=== PATIENT | female | born 1945 | race Caucasian/White ===

== ENCOUNTER 2017-03-22 06:33 | Outpatient (CLI) | payer MEDICARE ==
--- NOTE | 2017-03-22 10:00 | MRI ---
MRI LUMBAR SPINE WITHOUT CONTRAST: Date: 03-22-17 Comparison: 08-27-16, 10-09-14 History: Back pain with bilateral lower extremity radiculopathy and bilateral leg pain. Technique: Multiplanar, multisequence MR imaging of the lumbar spine is obtained without contrast. FINDINGS: Assuming five lumbar type vertebral bodies, conus medullaris terminates at the L1 level. Anterolisthesis of L4 on L5 is noted measuring 6-7 mm, slightly more prominent than on the prior exam . The sagittal STIR imaging demonstrates no focal area of osseous marrow edema. There is evidence of fr actures status post kyphoplasty at T10, T12, and L1. T11-12: There is disc space narrowing and disc desiccation. There is minimal retropulsion secondary t o fracture at superior endplate of T12, unchanged since 2014. There is no significant resultant centr al canal stenosis. There is mild bilateral facet hypertrophy but no significant neural foraminal sten osis on either side. T12-L1: There is bilateral facet hypertrophy. There is disc desiccation and mild disc space narrowing . There is no significant central canal or neural foraminal stenosis. L1-2: Mild bilateral facet hypertrophy. There is disc desiccation. No significant central canal or ne ural foraminal stenosis. L2-3: Mild bilateral facet hypertrophy. There is disc desiccation. There is no significant central ca nal or neural foraminal stenosis. L3-4: There is disc space narrowing, disc desiccation and mild disc bulge. There is mild bilateral fa cet hypertrophy and hypertrophy of ligamentum flavum. There is no significant central canal stenosis. There is mild bilateral neural foraminal stenosis, left greater than right. L4-5: There is bilateral facet hypertrophy and hypertrophy of ligamentum flavum with fluid within mikael ateral facet joints, progressed since the prior exam. There is mild central canal stenosis, similar w hen compared to prior imaging. There is mild bilateral neural foraminal stenosis, left greater than r ight, similar when compared to the prior exam. L5-S1: There is disc space narrowing and disc desiccation with mild disc bulge. Mild bilateral facet hypertrophy. No significant central canal or neural foraminal stenosis noted. Trace pleural fluid noted on the left. Imaged retroperitoneal structures demonstrate no acute finding s. IMPRESSION: 1. Multiple old fractures status post kyphoplasty. Multilevel degenerative change noted within the papi mbar spine with mild areas of central canal and neural foraminal stenosis as detailed above, not sign ificantly changed. POS: [facility]
--- NOTE | 2017-03-22 10:13 | MRI ---
MRI OF THE THORACIC SPINE WITHOUT CONTRAST: Date: 03-22-17 Comparison: 01-24-16 History: Pain and radiculopathy. Technique: Multiplanar, multisequence MR imaging of the thoracic spine provided without contrast. FINDINGS: There are kyphoplasty changes noted at T10, T12, and L1, stable. The sagittal STIR imaging demonstrates no focal area of osseous marrow edema to suggest the presence of an acute thoracic spine fracture. Superior endplate irregularity and anterior wedging noted at numerous levels within the upper and mid thoracic spine, stable, evidence of remote fractures. This includes T5, T6, T7 and T8 vertebral bodi es. There is no significant anterolisthesis of retrolisthesis noted within the thoracic spine. There is m inimal retropulsion at the superior endplate of the T12 vertebral body without associated significant central canal stenosis, stable. There is no significant central canal or neural foraminal stenosis noted within the thoracic spine. T here is no abnormal signal intensity within the thoracic cord. There is a tiny pleural effusion on th e left. IMPRESSION: No acute fracture is noted. Evidence of multiple prior kyphoplasty. Incidental findings as detailed a ernst. POS: [facility]
== END 2017-03-22 06:34 | disposition home or self-care (01) ==
LOC: MRI 06:33
PROVIDERS: ATTEND Nurse Practitioner Family
DX: M54.5 Low back pain (principal); M54.6 Pain in thoracic spine; M47.896 Other spondylosis, lumbar region; M48.061 Spinal stenosis, lumbar region without neurogenic claudication; Z98.890 Other specified postprocedural states
CPT/HCPCS: 72146; 72148

== ENCOUNTER 2017-04-22 10:05 | Outpatient (CLI) | payer MEDICARE ==
[2017-04-22] MEDS ORDERED: Iopamidol 370 76% 100 ML VIAL ONE (13:27)
== END 2017-04-22 10:06 | disposition home or self-care (01) ==
LOC: BICCT 10:05
PROVIDERS: ATTEND Internal Medicine Gastroenterology
DX: R10.9 Unspecified abdominal pain (principal); R63.4 Abnormal weight loss; K21.9 Gastro-esophageal reflux disease without esophagitis; R14.0 Abdominal distension (gaseous); N28.1 Cyst of kidney, acquired; Z98.890 Other specified postprocedural states
CPT/HCPCS: 36415; 74177; 82565

== ENCOUNTER 2017-05-11 07:09 | Outpatient (CLI) | payer MEDICARE ==
--- NOTE | 2017-05-11 09:07 | ULT ---
RIGHT UPPER QUADRANT ULTRASOUND: INDICATION: Abdominal pain. COMPARISON: CT of the chest, abdomen, and pelvis dated 05/22/14. FINDINGS: The gallbladder is surgically absent. No focal hepatic lesion is evident. There is some limited visualization of a portion of the bladder due to overlying bowel gas. The pancreas is obscured by overlying bowel gas. The common bile duct measures 6.2 mm. The right kidney measures 9.5 x 3.5 x 3.6 cm. No focal renal lesion or hydronephrosis is evident. IMPRESSION: 1. No acute sonographic abnormality within the abdomen. 2. Some limitation of the exam due to overlying bowel gas. 3. Cholecystectomy. POS: [facility]
== END 2017-05-11 07:10 | disposition home or self-care (01) ==
LOC: ULT 07:09
PROVIDERS: ATTEND Internal Medicine Gastroenterology
DX: R14.0 Abdominal distension (gaseous) (principal); R10.9 Unspecified abdominal pain; Z90.49 Acquired absence of other specified parts of digestive tract
CPT/HCPCS: 76705

== ENCOUNTER 2017-08-25 11:25 | Emergency (ER) | payer MEDICARE ==
[2017-08-25] MEDS ORDERED: traMADol HCl 50 MG TAB ONE (12:26)
--- NOTE | 2017-08-25 12:26 | RAD ---
RIGHT FOREARM 2 VIEWS: HISTORY: Patient fell with right arm pain. FINDINGS: The bones are demineralized. The wrist region is not well evaluated on this examination. There is w hat appears to be an old injury to the ulnar styloid and some slight irregularity to the distal radiu s which is felt to be related to an old posttraumatic change. The soft tissue swelling is seen more proximally in the proximal forearm. There is no fracture in this region. IMPRESSION: Old-appearing distal radial and ulnar styloid fractures. POS: [facility]
[2017-08-25] MEDS ORDERED: Ibuprofen 200 MG TAB ONE (12:27)
--- NOTE | 2017-08-25 12:29 | RAD ---
TWO VIEWS OF THE RIGHT HUMERUS: DATE: 08/25/17. COMPARISON: None. HISTORY: Fall, trauma, pain. FINDINGS: There is a nondisplaced obliquely oriented fracture involving the proximal right humerus at the level of the greater tuberosity. In addition, there appears to be an oblique and impacted component of fr acture involving the base of the right humeral head/right humeral neck. No evidence for dislocation. IMPRESSION: Comminuted and impacted fracture involving the right humeral head/neck as above. POS: [facility]
== END 2017-08-25 12:44 | disposition home or self-care (01) ==
LOC: ERS 11:25
DX: S42.214A Unspecified nondisplaced fracture of surgical neck of right humerus, initial encounter for closed fracture (principal); I10 Essential (primary) hypertension; G89.29 Other chronic pain; W19.XXXA Unspecified fall, initial encounter

== ENCOUNTER 2017-10-28 08:42 | Outpatient (CLI) | payer MEDICARE | END 2017-10-28 08:43 | disposition home or self-care (01) | LOC: BICMAMMO 08:42 | PROVIDERS: ATTEND Internal Medicine Hematology & Oncology | DX: M81.0 Age-related osteoporosis without current pathological fracture (principal); C50.919 Malignant neoplasm of unspecified site of unspecified female breast | CPT/HCPCS: 77080 ==

== ENCOUNTER 2018-07-15 11:27 | Inpatient (IN) | payer MEDICARE ==
[2018-07-15] MEDS ORDERED: Morphine 4 MG/ML VIAL ONE ×2 (11:54→13:57)
[2018-07-15 12:06] LABS: #Monocytes 0.4 thou/uL (0.11-0.59); #Neutrophils 3.8 thou/uL (1.40-6.50); %Basophils 0.9 % (0.0-1.0); %Eosinophils 0.5 % (0.0-10.0); %Lymphocytes 18.6 % (21.0-51.0); %Monocytes 7.9 % (0.0-10.0); %Neutrophils 72.2 % (42.0-75.0); Mean Corpuscular HGB CONC 32.4 g/dL (32.0-36.0); Mean Corpuscular Hemoglobin 32.5 pg (27.0-31.0); Mean Platelet Volume 7.3 fL (7.4-10.4); Platelet Count 173 thou/uL (130-400); RBC Distribution Width 12.1 % (11.5-14.5); Red Blood Cell (RBC) Count 3.07 mill/uL (4.20-5.40); White Blood Cell (WBC) Count 5.3 thou/uL (4.8-10.8)
[2018-07-15 12:29] LABS: ALT (SGPT) 27 U/L (8-55); AST (SGOT) 47 U/L (5-34); Albumin 3.5 g/dL (3.4-4.8); Alkaline Phosphatase 56 U/L (40-150); Anion Gap 11 mmol/L (10-20); BUN (Urea Nitrogen) 19 mg/dL (9.8-20.1); Bilirubin, Total 0.4 mg/dL (0.2-1.2); Calc. Creatinine Clearance 0 mL/min (70-130); Calcium 8.4 mg/dL (7.8-10.44); Carbon Dioxide 24 mmol/L (23-31); Chloride 108 mmol/L (98-107); Estimated GFR-MDRD 60; Globulin 2.5 g/dL (2.4-3.5); Glucose 93 mg/dL (83-110); Lipase 5 U/L (8-78); Potassium 4.4 mmol/L (3.5-5.1); Sodium 139 mmol/L (136-145)
--- NOTE | 2018-07-15 13:04 | CT ---
CT abdomen with contrast CT pelvis with contrast: DATE: 07/15/2018 HISTORY: 73-year-old female with left upper quadrant and left lower quadrant abdominal pain after colonoscopy. Concern for bowel perforation. At 12:57 PM, Dr. Sevilla notified Dr. Martinez of the perisplenic hematoma. COMPARISON: 04/22/2017 TECHNIQUE: IV injection of iodinated contrast media:100 mm [id number] Oral contrast media:Not administered FINDINGS: There is a normal finding of an approximately 10.5 x 8.5 x 7.5 cm mass surrounding the spleen, with h eterogeneously low density, consistent with a perisplenic hematoma. However, a laceration within the spleen is not visualized. The spleen is slightly small in size, and has homogeneous, normal perfu juliana. There is no pneumoperitoneum; no evidence of perforated viscus. There is a minimal finding of a moderate amount of free fluid within the dependent portion of the pel aleida cavity, more on the right side with density of 24 Hounsfield units, probably hemoperitoneum. Small amount of fluid along the left paracolic gutter, probably small amount of blood. No hydronephro sis. No focal hepatic lesion. Diffuse dilation of the entire biliary tree secondary to status post cholecystectomy. This biliary ductal dilation appears slightly worse than on the previous CT. Vertebr oplasty cement in lower thoracic spine and upper lumbar spine. No abdominal aortic aneurysm or rupture. Distended urinary bladder with normal, thin ulloa. Inferior positioning. Absent uterus. No e vidence of colonic diverticulitis. Difficult to evaluate splenic flexure of colon because of surrounding edema and fluid. Suture line around narrowed stomach. No small bowel dilation. Diffuse mi ld dilation of pancreatic duct. No adrenal mass. New tiny left pleural effusion. No consolidation at lung bases.. IMPRESSION: 1. Moderate size left perisplenic hematoma. 2. No evidence of pneumoperitoneum. 3. Hemoperitoneum in the pelvic dependent cavity.
[2018-07-15 14:12] LABS: INR-International Normal Ratio 1.1; PTT 25.9 SEC (22.9-36.1); Prothrombin Time 14.1 SEC (12.0-14.7)
[2018-07-15] MEDS ORDERED: Dextrose 5% in Water 1,000 ML IV PRN (14:31)
[2018-07-15] MEDS ORDERED: Morphine 4 MG/ML VIAL SLOW IVP PRN (14:31)
[2018-07-15] MEDS ORDERED: Promethazine HCl 25 MG/ML VIAL IM PRN (14:31)
[2018-07-15] MEDS ORDERED: hydrALAZINE 20 MG/ML VIAL SLOW IVP PRN (14:31)
[2018-07-15] MEDS ORDERED: Dextrose 50% Abboject 50 ML SYRINGE SLOW IVP PRN (14:31)
[2018-07-15] MEDS ORDERED: Ondansetron PF 4 MG/2 ML Vial IVP PRN (14:31)
--- NOTE | 2018-07-15 14:49 | HP ---
GENERAL SURGEON: Dr. Jimenez. CONSULTING PHYSICIAN: None. HISTORY OF PRESENT ILLNESS: The patient is a 73-year-old female, who had a colonoscopy today, where the physician reported he had difficulty at the splenic flexure transitioning from the descending colon to the transverse colon. Subsequently, the patient woke up and complained of severe left flank and abdominal tenderness and pain. She came to the emergency department for evaluation after the colonoscopy. She received a CT scan of the abdomen and pelvis, which demonstrated a perisplenic hematoma with hemoperitoneum without any active extravasation. She denies nausea, vomiting, and diarrhea as well as lightheadedness and syncope at this time. PAST MEDICAL HISTORY: Hypertension, hyperlipidemia, chronic back pain, stomach cancer, and dementia. PAST SURGICAL HISTORY: Stomach resection due to stomach cancer, multiple C-sections, total hysterectomy, and bladder pinning. SOCIAL HISTORY: The patient denies tobacco, alcohol, or drug abuse. 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 MEDICATIONS: 1. Tramadol. 2. Lisinopril. 3. An additional medication for dementia, which the patient could not remember the name or the dosage. ALLERGIES: HYDROCODONE. PHYSICAL EXAMINATION: VITAL SIGNS: Temperature 97.6, respirations 16, oxygen saturation 100% on room air, pulse 62, and blood pressure 154/81. GENERAL: Frail-appearing elderly female, lying in bed with no signs of acute distress. NEURO: GCS is 15. Gross motor and sensation intact in all 4 extremities. Pupils 3 to 2, equal, round, reactive bilaterally. Alert and oriented x3. PULMONARY: Equal chest rise and fall. Clear breath sounds bilaterally. No signs of pulmonary distress. CARDIAC: Bradycardic, but regular rhythm. No murmurs, gallops, or rubs. GASTROINTESTINAL: Abdomen is soft. Mildly tender on the left upper and lower quadrant as well as the left flank. No external signs of trauma noted. Positive bowel sounds. EXTREMITIES: Gross motor and sensation intact in all 4 extremities. 2+ pulses in all extremities. No significant swelling noted. LABORATORY FINDINGS: White count 5.3, hemoglobin 10.0, hematocrit 38.0, and platelets 173. INR 1.0, sodium 139, potassium 4.4, chloride 108, carbon dioxide 24, BUN 19, creatinine 0.91, and glucose 93. Lactic acid 0.8. AST 47, ALT 27, total bilirubin 0.4, and lipase 5. DIAGNOSTIC FINDINGS: CT of the abdomen and pelvis with contrast demonstrates moderate size left perisplenic hematoma. No evidence of pneumomediastinum. Hemoperitoneum in the pelvic dependent cavity. ASSESSMENT: 1. Status post colonoscopy with abdominal pain. 2. Perisplenic hematoma. 3. Hemoperitoneum. 4. History of hypertension, hyperlipidemia, chronic back pain, stomach cancer, and dementia. PLAN: The patient will be admitted to the CCU under the care of Dr. Jimenez. Dr. Garcia has agreed to perform any critical care as indicated. She will receive vital signs q.1 hour. We will closely monitor urine output and place a Carvajal. CBCs q.6 hours, next CBC at 1800 and then at midnight. EKG to be completed in the emergency department. The patient to be n.p.o. overnight with normal saline at 100 an hour. We will reassess electrolytes during the morning labs. We will hold chemo-DVT prophylaxis at this time, but the patient is to have SCDs as well as Pepcid for stress ulcer prophylaxis, pain control with Ofirmev and IV morphine. The patient has received morphine in the emergency department with no signs of reaction, although she does have an allergy to hydrocodone. The patient to get up out of bed with assistance, she is able to sit in the bed. I have ordered walking program for her. The patient was examined by Dr. Jimenez and then myself. Job ID: [id number]
[2018-07-15 15:33] LABS: Bilirubin Negative (Negative); Blood, Urine Negative (Negative); Clarity CLOUDY (Clear); Glucose, Urine (Dipstick) Negative (Negative); Leukocyte Trace (Negative); Nitrite Negative (Negative); Protein, Urine (Dipstick) Negative (Neg-Trace); Specific Gravity, Urine 1.027 (1.002-1.036)
[2018-07-15] MEDS ORDERED: Morphine 2 MG/ML SYRINGE SLOW IVP PRN (15:34)
[2018-07-15 15:36] LABS: Bacteria/HPF None Seen HPF (None Seen); Hyaline Casts/LPF 0-3 HYALINE CAST LPF (0-3 Hyaline); Squamous Epithelial None Seen HPF (0-3); WBC/HPF 0-3 HPF (0-3)
[2018-07-15] MEDS ORDERED: ISOVUE-370 76%-LOCM 1 ML ONE (16:42)
[2018-07-15 16:56] VITALS: BMI 19.2
[2018-07-15] MEDS: Sodium Chloride 0.9% 1,000 ML IV SCH (17:30)
[2018-07-15] MEDS: Acetaminophen 1,000 MG in Premix Bag 1 BAG IVPB SCH ×2 (17:30→20:34)
[2018-07-15 17:45] LABS: #Lymphocytes 1.2 thou/uL (1.20-3.40); #Neutrophils 8.5 thou/uL (1.40-6.50); %Basophils 0.2 % (0.0-1.0); %Eosinophils 0.2 % (0.0-10.0); %Monocytes 9.4 % (0.0-10.0); %Neutrophils 79.2 % (42.0-75.0); Hemoglobin 9.4 g/dL (12.0-16.0); Mean Corpuscular HGB CONC 31.9 g/dL (32.0-36.0); Mean Corpuscular Hemoglobin 31.9 pg (27.0-31.0); Mean Platelet Volume 7.1 fL (7.4-10.4); Platelet Count 166 thou/uL (130-400); Red Blood Cell (RBC) Count 2.94 mill/uL (4.20-5.40); White Blood Cell (WBC) Count 10.7 thou/uL (4.8-10.8)
--- NOTE | 2018-07-15 18:15 | CON ---
DATE OF CONSULTATION: HISTORY OF PRESENT ILLNESS: Ms. Thien Finch is a pleasant 73-year-old female, who was admitted to the ICU when she developed left upper abdominal pain for a colonoscopy. CT of abdomen was performed on emergency basis, which showed a large splenic hematoma, but there was no perforation seen. Apparently, there was some difficulty maneuvering the colonoscope by the splenic flexure. The patient in the ICU denies any difficulty breathing. Denies any chest pain. Vague left lower quadrant pain. Otherwise, appears to be relatively stable. PAST MEDICAL HISTORY: Hypertension, hyperlipidemia, chronic pain, apparently evidence of dementia. She sees her primary care physician, Dr. Haley. She has a gastric malignancy, status post chemo and radiation. Chronic renal failure. PREVIOUS SURGERIES: , hysterectomy, wrist surgery, vertebroplasty. HOME MEDICATIONS: Includes: 1. Tramadol. 2. Restoril. 3. Lisinopril 40. 4. Aricept 10. 5. B12. ALLERGIES: HYDROCODONE. SOCIAL HISTORY: Tobacco, none. Alcohol, none. SOCIAL AND FAMILY HISTORY: Unremarkable. REVIEW OF SYSTEMS: Ten-point negative. PHYSICAL EXAMINATION: GENERAL: She is awake, alert, and responsive in the ICU, in no distress. VITAL SIGNS: Pulse is 54, blood pressure 150/80, sats 99% on room air, and respirations 15. CHEST: Reveals no wheezing. CARDIAC: Normal S1 and S2. No gallops. ABDOMEN: Soft without any masses. LABORATORY DATA: No chest x-ray was done. Hemoglobin and hematocrit of 10 and 30, platelet count normal, white count normal. Lytes are normal. IMPRESSION: 1. Status post difficult colonoscopy with abdominal pain. CT showing splenic hematoma. 2. History of gastric cancer, post chemo and radiation. 3. Chronic arthritis. 4. Hypertension. Pulmonary/Critical Care will follow while in the ICU. At this time, she appears stable. Surgery is admitted. Serial exam will be performed. Consultation note, 70 minutes, 50% direct patient care. Job ID: [id number]
[2018-07-15] MEDS: traMADol HCl 50 MG TAB PO SCH (20:38)
[2018-07-15] MEDS: Donepezil HCl 10 MG TAB PO SCH (20:40)
[2018-07-15] MEDS: Hyoscyamine Sulfate ER 0.375 mg Tablet PO SCH (20:41)
[2018-07-15] MEDS ORDERED: Famotidine/PF 20 mg/2ml Vial SLOW IVP SCH (21:00)
[2018-07-15] MEDS ORDERED: TEMAZEPAM 7.5 MG PO SCH (21:00)
[2018-07-15] MEDS: diphenhydrAMINE 25 MG CAP PO PRN (21:34)
--- NOTE | 2018-07-16 00:57 | PRG ---
DATE OF SERVICE: 07/15/2018 HISTORY OF PRESENT ILLNESS: Mrs. Finch is a 73-year-old female who underwent an outpatient colonoscopy earlier this morning. The colon exam was rather difficult as she has severe looping in the sigmoid colon. Cecal intubation was achieved. She did have a transverse colon polyp that was removed. She did well until in recovery area where she was reported having significant left-sided abdominal pain. I examined her and she had a flat abdomen without tympany or distention, with active bowel sounds with palpable tenderness. She was observed for an hour and did not have any significant resolution for abdominal pain despite 50 mcg of fentanyl. Because of the possible complications, she was transferred to the emergency room by ambulance. The CT obtained showed a splenic hematoma with some degree of hemoperitoneum, but without any active extravasation. Laceration was not visible on CT. Currently, she reports having much less pain and appears to be much more comfortable and talkative. The vitals are stable. PAST MEDICAL HISTORY: 1. Status post total gastrectomy, followed by chemoradiation in 2010 for gastric cancer. 2. Status post cholecystectomy. 3. Hypertension. 4. Hyperlipidemia. 5. Status post . 6. Status post hysterectomy. MEDICATIONS: At home include; 1. Aspirin 81 mg daily. 2. Vitamin D. 3. Vitamin B12. 4. Lisinopril 40 mg daily. 5. Memantine 10 mg daily. 6. Tramadol p.r.n. pain. ALLERGIES: HYDROCODONE. SOCIAL HISTORY: The patient is . Lives with her . No tobacco or alcohol usage. FAMILY HISTORY: Colon cancer in brother. Otherwise negative for any known GI problem, liver disease, or GI malignancy. REVIEW OF SYSTEMS: Dysphagia with weight loss, status post esophageal dilation yesterday. Other 10-point review of systems did not show any other pertinent positives or negatives. PHYSICAL EXAMINATION: VITAL SIGNS: Temperature is 98.2, blood pressure 157/82, pulse of 67. GENERAL: She is alert, thin, elderly woman, in no distress. HEENT: Shows anicteric sclerae. Oropharynx clear. NECK: Supple. CV: Shows normal S1, S2. Regular rate and rhythm. CHEST: Shows a breath sounds. ABDOMEN: Soft and flat. No distention. No tympany. She has active bowel sounds. She is minimal to moderate tenderness in the left lower flank below the ribcage. No guarding or rebound. EXTREMITIES: Shows no edema. LABORATORY DATA: WBCs 10.7, hemoglobin 10.0 to 9.4 in 7 hours, platelet count 156. Coagulation normal. Electrolytes are normal. Creatinine is 0.91. LFTs are normal. ASSESSMENT: Splenic hematoma with hemoperitoneum, but without any clear laceration by CT. This happened with her outpatient colonoscopy this morning. Current abdominal exam shows a very benign exam and she appears to be in much more comfortable. RECOMMENDATIONS: 1. No further GI recommendations. The patient appears to be doing much better. 2. Conservative therapy, follow up blood count and exam. 3. Dr. Lira is on-call for GI Services weekend, please call if needed. Job ID: [id number] MTDD
[2018-07-16] MEDS: Acetaminophen 1,000 MG in Premix Bag 1 BAG IVPB SCH ×3 (02:22→15:01)
[2018-07-16] MEDS: Sodium Chloride 0.9% 1,000 ML IV SCH ×2 (02:27→11:42)
[2018-07-16] MEDS: traMADol HCl 50 MG TAB PO SCH ×6 (02:29→21:29)
--- NOTE | 2018-07-16 02:43 | HP ---
The patient was seen in conjunction with Natalia HANSON, and the plan of care was discussed with her. HISTORY OF PRESENT ILLNESS: In short, Ms. Finch is a 73-year-old woman, who was going for routine colonoscopy today and woke up with severe left-sided abdominal pain. There had been difficulty in traversing the splenic flexure and there was concern for perforation, so the patient was sent over to the ER, where CT was done. This did not show any evidence of perforation, but did show a fairly large perisplenic hematoma as well as some blood in the pelvis. However, there was no active extravasation. The patient was hemodynamically stable. She states that her pain is better since earlier in her hospital course, and denies chest pain or shortness of breath. PAST MEDICAL HISTORY: Stomach cancer, status post total gastrectomy, chronic back pain, hypertension, and dementia. PAST SURGICAL HISTORY: Total gastrectomy, kyphoplasty, , hysterectomy, and bladder lift. SOCIAL HISTORY: The patient does not smoke, drink, or use illicit drugs. Lives at home with her family and is independent. MEDICATIONS: Outpatient medications were not available at the time of her admission, but have since been obtained. These include: 1. Aspirin. 2. Vitamin D3. 3. Cyanocobalamin. 4. Donepezil. 5. Hyoscyamine sulfate extended release. 6. Lisinopril. 7. . 8. Temazepam. 9. Tramadol. ALLERGIES: THE PATIENT HAS AN ADVERSE DRUG REACTION TO HYDROCODONE, BUT TOLERATES OTHER NARCOTIC MEDICATIONS. PHYSICAL EXAMINATION: Complete physical examination was performed personally. VITAL SIGNS: Showed some moderate hypertension, but were otherwise within normal limits. GENERAL: She was not tachycardic or hypoxic. She is frail, but in no acute distress and does not appear pale or diaphoretic. HEENT: Unremarkable. NECK: Supple without lymphadenopathy. HEART: Regular in its rate and rhythm without murmurs, rubs, or gallops. LUNGS: Clear to auscultation. She had tenderness on the left side of her abdomen, but no rigidity, rebound, or guarding. No palpable masses or hernias. EXTREMITIES: Warm and well perfused without edema. NEUROLOGIC: No focal deficits, although she had difficulty getting some of the details of her care. For example, she could not tell me exactly why she was having the colonoscopy or whether anything has been found abnormal in the past. LABORATORY DATA: Initial hemoglobin was 10 and is 9.4 on 6-hour recheck. Coags are normal, and electrolytes are unremarkable. DIAGNOSTIC DATA: CT images are reviewed, and I agree with the written report. ASSESSMENT: Perisplenic hematoma due to colonoscopy. The patient is hemodynamically and clinically stable, and we will observe her. For now, I doubt that there is any ongoing bleeding, we will hold her aspirin, but resume her other home medications. She is going to be admitted to the CCU overnight for close observation and serial CBCs. Job ID: [id number]
[2018-07-16 05:56] LABS: #Eosinphils 0.1 thou/uL (0.0-0.7); #Lymphocytes 1.3 thou/uL (1.20-3.40); #Monocytes 0.6 thou/uL (0.11-0.59); #Neutrophils 4.1 thou/uL (1.40-6.50); %Basophils 0.2 % (0.0-1.0); %Eosinophils 0.9 % (0.0-10.0); %Monocytes 9.7 % (0.0-10.0); %Neutrophils 67.1 % (42.0-75.0); Hemoglobin 8.3 g/dL (12.0-16.0); Mean Corpuscular HGB CONC 32.4 g/dL (32.0-36.0); Mean Corpuscular Hemoglobin 32.8 pg (27.0-31.0); Mean Platelet Volume 7.5 fL (7.4-10.4); Platelet Count 152 thou/uL (130-400); RBC Distribution Width 12.2 % (11.5-14.5); Red Blood Cell (RBC) Count 2.54 mill/uL (4.20-5.40); White Blood Cell (WBC) Count 6.1 thou/uL (4.8-10.8)
[2018-07-16 06:14] LABS: Anion Gap 12 mmol/L (10-20); BUN (Urea Nitrogen) 16 mg/dL (9.8-20.1); Calc. Creatinine Clearance 41 mL/min (70-130); Calcium 8.5 mg/dL (7.8-10.44); Carbon Dioxide 22 mmol/L (23-31); Chloride 111 mmol/L (98-107); Estimated GFR-MDRD 63; Magnesium 1.7 mg/dL (1.6-2.6); Phosphorus 3.6 mg/dL (2.3-4.7); Potassium 4.5 mmol/L (3.5-5.1); Sodium 140 mmol/L (136-145)
[2018-07-16 06:18] LABS: Glucose 58 mg/dL (83-110)
[2018-07-16] MEDS ORDERED: Cyanocobalamin 1000 MCG/ML VIAL SC SCH (09:00)
--- NOTE | 2018-07-16 09:18 | PRG ---
DATE OF SERVICE: 07/16/2018 SUBJECTIVE: Ms. Finch this morning is awake, alert, responsive. No further abdominal pain. OBJECTIVE: VITAL SIGNS: Temperature 98, sats are 98% on room air, blood pressure 137/66, and respirations 18. CHEST: Decreased breath sounds. No wheezing. CARDIAC: Normal S1 and S2. No gallops. ABDOMEN: Soft. No tenderness. EXTREMITIES: No edema. NEUROLOGICAL: Unremarkable. LABORATORY DATA: Shows glucose was 58, lytes were normal. H and H are stable at 8.3 and 25. ASSESSMENT: 1. Status post colonoscopy. 2. Status post splenic hematoma. PLAN: Pulmonary standpoint of view, she appears to be stable. Disposition as per GI and Surgery. Pulmonary will follow at a distance when she leaves the ICU. Job ID: [id number]
[2018-07-16] MEDS: Lisinopril 20 MG TAB PO SCH (09:51)
[2018-07-16] MEDS: Hyoscyamine Sulfate ER 0.375 mg Tablet PO SCH ×2 (09:52→21:31)
[2018-07-16 15:48] LABS: Hemoglobin 8.7 g/dL (12.0-16.0)
--- NOTE | 2018-07-16 17:42 | PDOC.GSPN ---
Surgery Progress Note: Subj - Subjective Narrative: Patient is feeling well today. She doesn't really have any abdominal pain anymore. She is h hungry. H&H decreased slightly overnight. Abdomen is soft nondistended and with minimal tenderness in the left upper quadrant. Vital signs are stable and urine output is good. Assessment/plan: Doing well status post perisplenic hematoma from colonoscopy. Hemodynamically and clinically stable. We'll check an afternoon H&H and if this is stable she'll be transferred to the floor. Clear liquids and started. Advance activities. Surgery Progress Note: Obj - Vital signs Vital signs: Vital Signs - Most Recent Temp Pulse Resp BP Pulse Ox 98.1 F 59 L 14 132/64 99 07/16/18 16:00 07/15/18 11:35 07/15/18 11:35 07/16/18 09:51 07/16/18 08:00 Surgery Progress Note: Results - Labs Result Diagrams: 07/16/18 15:25 07/16/18 05:33 Lab results: Laboratory Results - last 24 hr 07/16/18 07/16/18 07/16/18 05:33 05:33 15:25 WBC 6.1 RBC 2.54 L Hgb 8.3 L 8.7 L Hct 25.7 L 27.2 L MCV 101.0 H MCH 32.8 H MCHC 32.4 RDW 12.2 Plt Count 152 MPV 7.5 Neutrophils % 67.1 Lymphocytes % 22.0 Monocytes % 9.7 Eosinophils % 0.9 Basophils % 0.2 Neutrophils # 4.1 Lymphocytes # 1.3 Monocytes # 0.6 H Eosinophils # 0.1 Basophils # 0.0 Sodium 140 Potassium 4.5 Chloride 111 H Carbon Dioxide 22 L Anion Gap 12 BUN 16 Creatinine 0.88 Estimated GFR (MDRD) 63 Glucose 58 L* Calcium 8.5 Phosphorus 3.6 Magnesium 1.7
[2018-07-16] MEDS ORDERED: Famotidine/PF 20 mg/2ml Vial SLOW IVP SCH (21:00)
[2018-07-16] MEDS: Donepezil HCl 10 MG TAB PO SCH (21:30)
[2018-07-16] MEDS: diphenhydrAMINE 25 MG CAP PO PRN (21:30)
[2018-07-17] MEDS: traMADol HCl 50 MG TAB PO SCH ×5 (01:30→16:54)
[2018-07-17] MEDS: Sodium Chloride 0.9% 1,000 ML IV SCH ×2 (05:31→15:51)
[2018-07-17 08:40] LABS: #Basophils 0.1 thou/uL (0.0-0.2); #Lymphocytes 1.2 thou/uL (1.20-3.40); #Monocytes 0.5 thou/uL (0.11-0.59); %Basophils 1.1 % (0.0-1.0); %Eosinophils 0.8 % (0.0-10.0); %Lymphocytes 20.9 % (21.0-51.0); %Neutrophils 69.3 % (42.0-75.0); Hemoglobin 8.9 g/dL (12.0-16.0); Mean Corpuscular Hemoglobin 33.2 pg (27.0-31.0); Mean Platelet Volume 7.3 fL (7.4-10.4); Platelet Count 162 thou/uL (130-400); RBC Distribution Width 12.3 % (11.5-14.5); Red Blood Cell (RBC) Count 2.68 mill/uL (4.20-5.40); White Blood Cell (WBC) Count 5.7 thou/uL (4.8-10.8)
[2018-07-17] MEDS: Lisinopril 20 MG TAB PO SCH (08:56)
[2018-07-17] MEDS: Hyoscyamine Sulfate ER 0.375 mg Tablet PO SCH (08:56)
[2018-07-17 12:18] VITALS: BP 156/82; TEMP 97.7
--- NOTE | 2018-07-17 12:18 | PDOC.GSPN ---
Surgery Progress Note: Subj - Subjective Narrative: Patient continues to feel better. She denies any lightheaded and shortness of breath or chest pain when she ambulates. She is tolerating clear liquids and is hungry. She is not having any abdominal pain although she still little sore on the left side. Abdomen is soft and nondistended with normal bowel sounds and minimal tenderness in the left upper quadrant. Vitals are stable and H&H are stable. Assessment/plan: Perisplenic hematoma due to colonoscopy, stable. No evidence of ongoing bleeding. Asymptomatic from hemorrhagic anemia. I'm going to advance her diet and if she tolerates that she can be discharged home later today. She doesn't need to take her vitamin with iron. She can resume her home medications, but hold her aspirin for at least another week. Surgery Progress Note: Obj - Vital signs Vital signs: Vital Signs - Most Recent Temp Pulse Resp BP Pulse Ox 97.3 F L 58 L 12 148/75 H 98 07/17/18 07:25 07/17/18 07:25 07/17/18 07:25 07/17/18 07:25 07/17/18 07:25 Surgery Progress Note: Results - Labs Result Diagrams: 07/17/18 08:24 07/16/18 05:33 Lab results: Laboratory Results - last 24 hr 07/17/18 08:24 WBC 5.7 RBC 2.68 L Hgb 8.9 L Hct 27.0 L MCV 101.0 H MCH 33.2 H MCHC 33.0 RDW 12.3 Plt Count 162 MPV 7.3 L Neutrophils % 69.3 Lymphocytes % 20.9 L Monocytes % 8.0 Eosinophils % 0.8 Basophils % 1.1 H Neutrophils # 4.0 Lymphocytes # 1.2 Monocytes # 0.5 Eosinophils # 0.0 Basophils # 0.1
--- NOTE | 2018-07-17 12:23 | PRG ---
DATE OF SERVICE: 07/17/2018 SUBJECTIVE: Mary Finch was transferred out of the ICU yesterday. H and H have been stable. OBJECTIVE: VITAL SIGNS: Temperature is 97, pulse 58, saturations are 90% on room air, and blood pressure 148/75. GENERAL: She denied any difficulty breathing. Abdominal pain is better. CHEST: Decreased breath sounds. No wheezing. CARDIAC: Normal S1 and S2. No gallops. ABDOMEN: Soft. LABORATORY DATA: H and H are 8.9 and 27. IMPRESSION: Status post colonoscopy with ensuing splenic hematoma. Abdominal pain, resolved. PLAN: Disposition as per GI and Surgery. Pulmonary will follow at a distance. Job ID: [id number]
== END 2018-07-17 17:26 | disposition home or self-care (01) | DRG 919 ==
LOC: ERS 11:27 → CCU 14:23 → SURG B 07-16 20:12
PROVIDERS: ADMIT Anesthesiology Pain Medicine; ATTEND Anesthesiology Pain Medicine
DX: D78.32 Postprocedural hematoma of the spleen following other procedure (principal); K66.1 Hemoperitoneum; K56.2 Volvulus; Y83.8 Other surgical procedures as the cause of abnormal reaction of the patient, or of later complication, without mention of misadventure at the time of the procedure; G89.29 Other chronic pain; M54.9 Dorsalgia, unspecified; I10 Essential (primary) hypertension; D50.0 Iron deficiency anemia secondary to blood loss (chronic); F03.90 Unspecified dementia, unspecified severity, without behavioral disturbance, psychotic disturbance, mood disturbance, and anxiety; M19.90 Unspecified osteoarthritis, unspecified site; Z79.82 Long term (current) use of aspirin; Z79.899 Other long term (current) drug therapy; Z85.028 Personal history of other malignant neoplasm of stomach; Z90.3 Acquired absence of stomach [part of]; Z92.21 Personal history of antineoplastic chemotherapy; Z92.3 Personal history of irradiation; Z86.010 Personal history of colon polyps
CPT/HCPCS: 36415; 74177; 80048; 80053; 81003; 81015; 83605; 83690; 83735; 84100; 85025; 85610; 85730; 93005; 96374; 96376; J0131; J2270; J3420; Q0163; Q9966; S0028

== ENCOUNTER 2018-07-21 12:06 | Outpatient (CLI) | payer MEDICARE ==
--- NOTE | 2018-07-21 15:31 | RAD ---
4 views of the lumbar spine. INDICATION: Sacroiliitis COMPARISON: MR lumbar spine dated 07/21/2018 FINDINGS: Compression abnormality involving L1, T12 and T10 are stable. There is slight grade 1 anter olisthesis of L4 on L5. There is diffuse osteopenia. There is advanced facet osteoarthrosis at L4-5 and L5-S1. There is degenerative dextroscoliosis of the lumbar spine. There is mild degenerative saenz ge of both SI joints. No abnormal translational motion is evident. IMPRESSION: 1. No acute fracture or subluxation. 2. Stable compression abnormalities with vertebroplasty change involving T10, T12 and L1. 3. Multilevel spondylosis of the lumbar spine. 4. Mild grade 1 anterolisthesis of L4 and L5 which is likely degenerative in nature. 5. No abnormal translational motion.
--- NOTE | 2018-07-21 15:38 | MRI ---
MRI LUMBAR SPINE WITH AND WITHOUT CONTRAST: 07/21/18 Multiplanar and Multisequ[facility] imaging lumbar spine obtained. [facility]: Lumbar radiculopathy. History of GI cancer. Comparison made to a prior MRI lumbar spine dated 03/22/17. FINDINGS: There is severe anterior wedge compression of the T12 vertebra. Moderate wedging of the L1 vertebra. Also moderate wedging of the T10 vertebra. Evidence of vertebroplasty cement at these levels. These l evels all appear stable when compared to 2018 exam. There is no edema seen within any of the visualiz ed vertebrae on STIR sequence. At T11-T12 level, there is mild retropulsion of the posterior superior corner of T12 which is stable from the prior exam. Minimal bulge at this level. These changes flatten the thecal sac but do not imp matilde on the conus. At T12-L1, mild disc bulge. No significant central canal or foraminal stenosis. At L1-2, no significant disc bulge. No central canal or foraminal stenosis. At L2-3, mild disc bulge. Mild facet hypertrophy. Mild central canal stenosis. No foraminal stenosis. At L3-4, mild diffuse disc bulge. Moderate facet and ligamentous hypertrophy. Mild to moderate centra l canal stenosis. At L4-5, there is a mild anterolisthesis which is stable from the prior exam. Diffuse disc bulge. Fac et and ligamentous hypertrophy. These changes result in moderate to severe central canal stenosis. Mi ld foraminal narrowing due to diffuse disc bulge and facet hypertrophy. At L5-S1, there is an annular fissure with small central protrusion which is unchanged in appearance from the prior study. This abuts the thecal sac. No central canal or foraminal stenosis is seen. No abnormal enhancement. IMPRESSION: Significant central canal stenosis seen at L3-4 and L4-5 as described above. Small protrusion at L5-S 1 is again seen. Compression deformities in the lower thoracic and upper lumbar spine again noted wit h vertebroplasty change. Findings as described above all appear stable when compared to 2018 exam. POS: JULIA
== END 2018-07-21 12:07 | disposition home or self-care (01) ==
LOC: BICMRI 12:06
PROVIDERS: ATTEND Anesthesiology Pain Medicine
DX: M46.1 Sacroiliitis, not elsewhere classified (principal); M47.816 Spondylosis without myelopathy or radiculopathy, lumbar region; M43.16 Spondylolisthesis, lumbar region; M48.061 Spinal stenosis, lumbar region without neurogenic claudication; M51.27 Other intervertebral disc displacement, lumbosacral region; M43.8X6 Other specified deforming dorsopathies, lumbar region; M43.8X4 Other specified deforming dorsopathies, thoracic region
CPT/HCPCS: 72110; 72158

== ENCOUNTER 2018-09-29 06:45 | Outpatient (CLI) | payer MEDICARE ==
--- NOTE | 2018-09-29 08:05 | ULT ---
ULTRASOUND ABDOMEN: HISTORY: Abdominal pain FINDINGS: The liver, spleen, kidneys and visualized portions of the aorta and IVC appear normal. The common mica t measures 7mm in diameter. No free fluid is seen. The patient is post cholecystectomy. The pancreas is not satisfactorily visualized due to overlying bowel gas. IMPRESSION: No significant abnormalities are identified.
== END 2018-09-29 06:46 | disposition home or self-care (01) ==
LOC: ULT 06:45
PROVIDERS: ATTEND Internal Medicine Gastroenterology
DX: R10.9 Unspecified abdominal pain (principal); R13.10 Dysphagia, unspecified; Z85.028 Personal history of other malignant neoplasm of stomach
CPT/HCPCS: 76700